=== PATIENT | male | born 1955 ===

== ENCOUNTER 2018-01-28 08:15 | Emergency (ER) | payer OTHER ==
[~2018-01-28] VITALS: Ht 175.3 cm; Wt 108.9 kg
[~2018-01-28 08:15] MED LIST: ASA81 MG PO; ATACAND HCT 31 UDTA1 PO; CIPRO500 MG PO; CORGARD40 MG PO; PROCARDIA90 MG/BLIS PO; TAMS0.4C; URIN D.S. TABLE1 TAB PO
[2018-01-28] MEDS ORDERED: HYDROCHLOROTHIA25 MG PO (08:35)
[2018-01-28] MEDS ORDERED: TAMS0.4C PO (08:36)
[2018-01-28] MEDS ORDERED: NIFE60TA3 PO (08:36)
[2018-01-28] MEDS ORDERED: COZAAR50 MG PO (08:36)
[2018-01-28] MEDS ORDERED: NORFLEX100MG PO (11:45)
[2018-01-28] MEDS ORDERED: KETO10TA2 PO (11:45)
== END 2018-01-28 11:49 | disposition home or self-care (01) ==
LOC: ER 08:15
DX: M54.5 Low back pain (principal)

== ENCOUNTER 2021-05-29 11:54 | Inpatient (IN) | payer OTHER ==
[~2021-05-29] VITALS: Ht 175.3 cm; Wt 117.9 kg
[~2021-05-29 11:54] MED LIST changes: +COZAAR50 MG PO; +HYDROCHLOROTHIA25 MG PO; +KETO10TA2 PO; +NIFE60TA3 PO; +NORFLEX100MG PO; +TAMS0.4C PO
[2021-05-29] MEDS ORDERED: CHILDREN'S ASPI81 MG (12:08)
[2021-05-29] MEDS ORDERED: TOPROL XL50 M1 (12:09)
[2021-05-29] MEDS ORDERED: ISOSORBIDE MONO60 MG (12:09)
[2021-05-29] MEDS ORDERED: PLAVIX75 MG (12:09)
[2021-05-29] MEDS ORDERED: ATORVASTATIN CA10 MG (12:10)
== END 2021-06-02 23:20 | disposition home or self-care (01) | DRG 386 ==
LOC: ER 11:54 → MEDJ 19:06
PROVIDERS: ADMIT Internal Medicine; ATTEND Internal Medicine
PROC: BW2110Z Computerized Tomography (CT Scan) of Abdomen and Pelvis using Low Osmolar Contrast, Unenhanced and Enhanced (ICD-10-PCS; principal; 2021-05-29)
DX: K51.511 Left sided colitis with rectal bleeding (principal); I50.22 Chronic systolic (congestive) heart failure; K64.4 Residual hemorrhoidal skin tags; E86.0 Dehydration; E78.5 Hyperlipidemia, unspecified; Z20.822 Contact with and (suspected) exposure to COVID-19; I11.0 Hypertensive heart disease with heart failure; Z95.810 Presence of automatic (implantable) cardiac defibrillator